=== PATIENT | male | born 1965 | race Hispanic/Latino ===

== ENCOUNTER → 2018-01-11 | Outpatient (CLI) | payer BC ==
[~2018-01-11] MED LIST: GABAPENTIN400 MG PO; JANUVIA100 MG PO; METFORMIN HCL500 MG PO
--- NOTE | 2018-01-11 11:51 | Diagnostic Imaging Report ---
PROCEDURE: X-RAY UPPER GI SERIES WITH AIR CONTRAST TECHNIQUE: Upper GI was performed with patient drinking effervescent crystals, thick barium, thin barium. OPERATORS: Dr. Daniel COMPARISON: None. INDICATIONS: Reflux FINDINGS: ESOPHAGUS: Motility: Within normal limits. Mucosa: Unremarkable. Distensibility: Normal. GASTROESOPHAGEAL JUNCTION: No evidence of hiatal hernia. Vestibule visualized. GASTROESOPHAGEAL REFLUX: Mild to moderate spontaneous gastroesophageal reflux to the thoracic inlet. STOMACH: Normally distensible and demonstrates normal contours and mucosal pattern. DUODENUM: Bulb and sweep are normal. Duodenal-jejunal junction is in the normal expected position. IMPRESSION: 1. Mild to moderate spontaneous gastroesophageal reflux to the thoracic inlet. 2. Otherwise unremarkable upper GI. Dictated by: Juve Daniel M.D. on 01/11/2018 at 11:52 Electronically approved by: Juve Daniel M.D. on 01/11/2018 at 11:52
== END ==
LOC: DX 10:39
PROVIDERS: ATTEND Family Medicine
DX: K21.9 Gastro-esophageal reflux disease without esophagitis (principal)
CPT/HCPCS: 74246

== ENCOUNTER → 2025-05-23 | Day surgery (SDC) | payer BC ==
[2025-05-22 12:39] LABS: EST GLOMERULAR FILTRATION RATE 108.0 ML/MIN (>=60)
[~2025-05-23] MED LIST changes: +ACETAMINOPHEN-1 EAC4 PO; +CIPRO500 MG PO; +DEXAMETHASONE SOD PHOS INJ 4 MG/ML SDV ONE; +FAMOTIDINE 20 MG/2 ML VIAL IV ONE; +FENTANYL CITRATE/PF 100MCG/2 ML INJ ONE; +GEMFIBROZIL600 MG PO; +GLIPIZIDE ER5 MG PO; +LIDOCAINE HCL 2% LOCAL INJ 5 ML SDV VIAL INJ ONE; +MIDAZOLAM HCL 2 MG/2 ML VIAL ONE; +ONDANSETRON HCL INJ 2MG/ML 2ML 2 MG/ML VIAL ONE; +ONE A DAY PO; +PROPOFOL IV EMULSION 10 MG/ML 20 ML VIAL ONE
[2025-05-23] MEDS: LACTATED RINGER'S 1,000 ML ONE (07:01)
[2025-05-23 10:15] VITALS: BP 123/86; PULSE 66; RESP 16; TEMP 97; O2SAT 98
== END | disposition home or self-care (01) ==
LOC: OR 06:27
PROVIDERS: ATTEND Plastic Surgery
DX: M65.841 Other synovitis and tenosynovitis, right hand (principal); E11.9 Type 2 diabetes mellitus without complications; E78.5 Hyperlipidemia, unspecified; E66.01 Morbid (severe) obesity due to excess calories; Z01.810 Encounter for preprocedural cardiovascular examination; Z01.812 Encounter for preprocedural laboratory examination; Z79.84 Long term (current) use of oral hypoglycemic drugs; Z79.899 Other long term (current) drug therapy
CPT/HCPCS: 26020; 36415 ×2; 80048; 82948; 87071; 87075; 87186; 87205; 93005; J0690; J1100; J1308; J2003; J2250; J2405; J2704; J3010; J7121